=== PATIENT | male | born 1975 | race Caucasian/White ===

== ENCOUNTER 2019-01-03 10:22 | Inpatient (IN) | payer MEDICARE, MEDICAID ==
[2019-01-03 10:48] LABS: CHLORIDE,CL 103 mEq/L (98-106); SODIUM,NA 139 mEq/L (136-145)
[2019-01-03] MEDS ORDERED: Ondansetron 4 MG/2 ML SDV IV PRN (12:40)
[2019-01-03] MEDS ORDERED: Docusate Sodium 100 MG Cap PO PRN (12:40)
[2019-01-03] MEDS ORDERED: Ibuprofen 200 MG Tab PO PRN (12:40)
[2019-01-03] MEDS ORDERED: Acetaminophen 325 MG Tab PO PRN (12:40)
[2019-01-03] MEDS: cefTRIAXone 1 GM Vial IVPUSH SCH (13:29)
[2019-01-03] MEDS: Sodium Chloride 0.9% 1,000 ML IV SCH (15:04)
[2019-01-04] MEDS: Sodium Chloride 0.9% 1,000 ML IV SCH ×2 (00:06→20:30)
[2019-01-04 07:54] LABS: CHLORIDE,CL 108 mEq/L (98-106); SODIUM,NA 142 mEq/L (136-145)
--- NOTE | 2019-01-04 09:16 | PCM.PN ---
- General Info Date of Service: 01/04/19 Admission Dx/Problem (Free Text): UTI Weakness Functional Status: Reports: Pain Controlled, Tolerating Diet, Ambulating, Urinating - Review of Systems General: Reports: Fever, Weakness HEENT: Reports: No Symptoms Pulmonary: Denies: Shortness of Breath Cardiovascular: Denies: Chest Pain, Edema, Lightheadedness Gastrointestinal: Denies: Abdominal Pain, Diarrhea, Hematochezia (no further vomiting since admit), Nausea, Vomiting Genitourinary: Denies: Incontinence, Hematuria Musculoskeletal: Reports: No Symptoms Skin: Reports: No Symptoms Neurological: Reports: Pre-Existing Deficit (history of down's syndrome) - Patient Data Vitals - Most Recent: Last Vital Signs Temp 98.5 F 01/04/19 07:25 Pulse 74 01/04/19 07:25 Resp 18 01/04/19 07:25 BP 118/73 01/04/19 07:25 Pulse Ox 94 L 01/04/19 07:25 Weight - Most Recent: 164 lb 4.8 oz I&O - Last 24 Hours: Intake & Output 01/03/19 01/04/19 01/04/19 22:59 06:59 14:59 Intake Total 903 Balance 903 Lab Results Last 24 Hours: Laboratory Results - last 24 hr 01/03/19 01/03/19 01/03/19 Range/Units 10:28 10:28 10:28 WBC 20.2 H* (5.0-10.0) 10^3/uL RBC 5.30 (4.50-6.00) 10^6/uL Hgb 17.1 (14.0-18.0) g/dL Hct 48.8 (40.0-54.0) % MCV 92.1 (82.0-94.0) fL MCH 32.3 H (27.0-32.0) pg MCHC 35.0 (33.0-38.0) g/dL RDW Coeff of Angelo 14.6 (11.0-15.0) % Plt Count 196 (150-400) 10^3/uL Neut % (Auto) [place] Lymph % (Auto) [place] Sorter Brown % (Auto) [place] Eos % (Auto) [place] Baso % (Auto) [place] Neut # (Auto) [place] Lymph # (Auto) [place] S[place] Brown # (Auto) [place] Eos # (Auto) [place] Baso # (Auto) [place] Add Manual Diff Yes Neutrophils % (Manual) 75 (35-85) % Band Neutrophils % 11 H (0-5) % Lymphocytes % (Manual) 11 L (21-55) % Monocytes % (Manual) 3 (2-12) % Sodium 139 (136-145) mEq/L Potassium 4.7 D (3.5-5.0) mEq/L Chloride 103 (98-106) mEq/L Carbon Dioxide 28 (21-32) mmol/L BUN 21 H (7-18) mg/dL Creatinine 1.1 (0.7-1.3) mg/dL Est Cr Clr Drug Dosing TNP Estimated GFR (MDRD) > 60 (>=60) mL/min Glucose 122 H D (75-99) mg/dL Calcium 9.0 (8.4-10.1) mg/dL Total Bilirubin 0.5 (0.0-1.0) mg/dL AST 22 (15-37) U/L ALT 32 (12-78) U/L Alkaline Phosphatase 76 (46-116) U/L C-Reactive Protein 3.5 H (0.2-0.8) mg/dL Total Protein 7.5 (6.4-8.2) g/dL Albumin 3.5 (3.4-5.0) g/dL Amylase 35 (25-115) U/L Urine Color Yellow (YELLOW) Urine Appearance Slightly cloudy (CLEAR) Urine pH 7.0 (4.5-8.0) Ur Specific [place] 1.020 (1.003-1.020) Urine Protein Trace H (NEGATIVE) mg/dL Urine Glucose (UA) Negative (NEGATIVE) mg/dL Urine Ketones Negative (NEGATIVE) mg/dL Urine Occult Blood Trace-intact H (NEGATIVE) Urine Nitrite Negative (NEGATIVE) Urine Bilirubin Negative (NEGATIVE) Urine Urobilinogen 0.2 (0.2-1.0) EU/dL Ur Leukocyte Esterase Moderate H (NEGATIVE) Urine RBC 5-10 H (0-5) /HPF Urine WBC 20-30 H (0-5) /HPF Ur Squamous Epith Cells Occasional H (NOT SEEN) /HPF Urine Bacteria Occasional H (NOT SEEN) /HPF 01/04/19 01/04/19 Range/Units 06:55 07:00 WBC 10.4 H (5.0-10.0) 10^3/uL RBC 4.70 (4.50-6.00) 10^6/uL Hgb 15.1 (14.0-18.0) g/dL Hct 45.2 (40.0-54.0) % MCV 96.2 H (82.0-94.0) fL MCH 32.1 H (27.0-32.0) pg MCHC 33.4 (33.0-38.0) g/dL RDW Coeff of Angelo 15.1 H (11.0-15.0) % Plt Count 177 (150-400) 10^3/uL Neut % (Auto) 75.2 Lymph % (Auto) 16.1 Brown % (Auto) 6.8 Eos % (Auto) 1.5 Baso % (Auto) 0.4 Neut # (Auto) 7.82 H Lymph # (Auto) 1.68 Brown # (Auto) 0.71 Eos # (Auto) 0.16 Baso # (Auto) 0.04 Add Manual Diff Neutrophils % (Manual) (35-85) % Band Neutrophils % (0-5) % Lymphocytes % (Manual) (21-55) % Monocytes % (Manual) (2-12) % Sodium 142 (136-145) mEq/L Potassium 4.0 (3.5-5.0) mEq/L Chloride 108 H (98-106) mEq/L Carbon Dioxide 31 (21-32) mmol/L BUN 20 H (7-18) mg/dL Creatinine 1.0 (0.7-1.3) mg/dL Est Cr Clr Drug Dosing TNP Estimated GFR (MDRD) > 60 (>=60) mL/min Glucose 134 H (75-99) mg/dL Calcium 8.2 L (8.4-10.1) mg/dL Total Bilirubin (0.0-1.0) mg/dL AST (15-37) U/L ALT (12-78) U/L Alkaline Phosphatase (46-116) U/L C-Reactive Protein 12.3 H (0.2-0.8) mg/dL Total Protein (6.4-8.2) g/dL Albumin (3.4-5.0) g/dL Amylase (25-115) U/L Urine Color (YELLOW) Urine Appearance (CLEAR) Urine pH (4.5-8.0) Ur Specific [place] (1.003-1.020) Urine Protein (NEGATIVE) mg/dL Urine Glucose (UA) (NEGATIVE) mg/dL Urine Ketones (NEGATIVE) mg/dL Urine Occult Blood (NEGATIVE) Urine Nitrite (NEGATIVE) Urine Bilirubin (NEGATIVE) Urine Urobilinogen (0.2-1.0) EU/dL Ur Leukocyte Esterase (NEGATIVE) Urine RBC (0-5) /HPF Urine WBC (0-5) /HPF Ur Squamous Epith Cells (NOT SEEN) /HPF Urine Bacteria (NOT SEEN) /HPF Med Orders - Current: Current Medications Acetaminophen (Tylenol) 650 mg PO Q4H PRN PRN Reason: Pain (Mild 1-3)/fever Last Admin: 01/03/19 15:03 Dose: 650 mg Ceftriaxone Sodium (Rocephin) 1 gm IVPUSH DAILY@1200 [facility] Last Admin: 01/03/19 13:29 Dose: 1 gm Docusate Sodium (Colace) 100 mg PO BID PRN PRN Reason: Constipation Sodium Chloride (Normal Saline) 1,000 mls @ 100 mls/hr IV ASDIRECTED [facility] Last Admin: 01/04/19 00:06 Dose: 100 mls/hr Ibuprofen (Motrin) 400 mg PO Q6H PRN PRN Reason: Pain (mild 1-3) Ondansetron HCl (Zofran) 4 mg IV Q4H PRN PRN Reason: Nausea/Vomiting - Exam General: Alert, Oriented (person) HEENT: Mucous Membr. Moist/[place] Neck: Supple Lungs: Clear to Auscultation, Normal Respiratory Effort Cardiovascular: Regular Rate, Regular Rhythm GI/Abdominal Exam: Normal Bowel Sounds, Soft, Non-Tender Extremities: Normal Inspection, No Pedal Edema Skin: Warm, Dry Neurological: No New Focal Deficit - Problem List & Annotations (1) UTI (urinary tract infection) SNOMED Code(s): 70105355 Code(s): N39.0 - URINARY TRACT INFECTION, SITE NOT SPECIFIED Status: Acute Priority: High Current Visit: Yes Qualifiers: Urinary tract infection type: acute cystitis Hematuria presence: without hematuria Qualified Code(s): N30.00 - Acute cystitis without hematuria (2) Hematemesis SNOMED Code(s): 7015811 Code(s): K92.0 - HEMATEMESIS Status: Acute Priority: High Current Visit : Yes Qualifiers: Nausea presence: with nausea Qualified Code(s): K92.0 - Hematemesis (3) Down's syndrome SNOMED Code(s): 80065723 Code(s): Q90.9 - DOWN SYNDROME, UNSPECIFIED Status: Chronic Priority: Medium Current Visit: Yes - Problem List Review Problem List Initiated/Reviewed/Updated: Yes - My Orders Last 24 Hours: My Active Orders 01/05/19 05:11 BASIC METABOLIC PANEL,BMP [CHEM] AM C-REACTIVE PROTEIN [CHEM] AM CBC WITH AUTO DIFF [HEME] AM - Assessment Assessment:: UTI Hematemesis down's syndrome - Plan Plan:: Patient doing well this am. Denies any abdominal pain. No vomiting, hematemesis or any stools since admit. Temp this am 99.0. Eating breakfast without concern, no nausea. Denies burning with urination. Exam negative. WBC stabilized today at 10.4, down from 20.2. CRP up to 12.3 from 3.5. Awaiting urine culture. Will continue with IV antibiotics, probable discharge home tomorrow.
[2019-01-04] MEDS: cefTRIAXone 1 GM Vial IVPUSH SCH (12:33)
[2019-01-05] MEDS: Sodium Chloride 0.9% 1,000 ML IV SCH (06:31)
[2019-01-05 07:55] LABS: CHLORIDE,CL 106 mEq/L (98-106); SODIUM,NA 141 mEq/L (136-145)
--- NOTE | 2019-01-05 20:36 | PCM.DCSUM1 ---
Discharge Summary - Hospital Course Free Text/Narrative:: Patient presented to clinic to see Nico Chan for concerns with hematemesis. Staff from [address] [place] [address] reports that he was running fever. Had been ill over night , noted bloody emesis in stool this am. Patient himself does not complain. He typically only has intermittent staff that checks on his at his apartment. Lab work up in the clinic did show UTI. WBC 20.2. CRP 3.5. Admitted and started on IV Rocephin. Culture of urine ordered. Diagnosis: Stroke: No Modified Mcintosh Scale: No Symptoms at All Modified Mcintosh Scale Score: 0 - Discharge Data Discharge Date: 01/05/19 Discharge Disposition: Home, Self-Care 01 Condition: Good - Discharge Diagnosis/Problem(s) (1) UTI (urinary tract infection) SNOMED Code(s): 69396589 ICD Code: N39.0 - URINARY TRACT INFECTION, SITE NOT SPECIFIED Status: Acute Priority: High Qualifiers: Urinary tract infection type: acute cystitis Hematuria presence: without hematuria Qualified Code(s): N30.00 - Acute cystitis without hematuria (2) Hematemesis SNOMED Code(s): 8286312 ICD Code: K92.0 - HEMATEMESIS Status: Acute Priority: High Qualifiers: Nausea presence: with nausea Qualified Code(s): K92.0 - Hematemesis (3) Down's syndrome SNOMED Code(s): 08590151 ICD Code: Q90.9 - DOWN SYNDROME, UNSPECIFIED Status: Chronic Priority: Medium - Patient Summary/Data Complications: none Hospital Course: Patient doing well. Up and ambulating easily. Appetite good. Afebrile. Denies any pain. Exam negative. Urine culture positive for enterococcus faecium and e coli. Discharge home on Ceftin. Recheck in 2 weeks with Nico Chan. - Patient Instructions Diet: Usual Diet as Tolerated Activity: As Tolerated - Discharge Plan *PRESCRIPTION DRUG MONITORING PROGRAM REVIEWED*: No *COPY OF PRESCRIPTION DRUG MONITORING REPORT IN PATIENT [facility]: No Prescriptions/Med Rec: Cefuroxime Axetil [Ceftin] 250 mg PO BID #20 tablet Home Medications: Home Meds Betamethasone/Propylene Glyc [Betamethasone DP Aug 0.05%] 30 ml TP TID PRN 01/03 [History] Chlorhexidine Gluconate [Peridex 0.12% Rinse] 15 ml PO BID 01/03/19 [History] Clotrimazole [Clotrimazole 1%] 1 gm TOP DAILY 01/03/19 [History] Levothyroxine [Synthroid] 100 mcg PO ACBREAKFAST 01/03/19 [History] Loratadine [Claritin] 10 mg PO DAILY 01/03/19 [History] Multivitamin [Multi-Vitamin Daily] 1 tab PO DAILY 01/03/19 [History] Ranitidine [Zantac] 150 mg PO BID 01/03/19 [History] Cefuroxime Axetil [Ceftin] 250 mg PO BID #20 tablet 01/05/19 [Rx] Referrals: Sharan Chan PA-C [Primary Care Provider] - (follow up in 2 weeks with Nico Chan) - Discharge Summary/Plan Comment DC Time >30 min.: No - General Info Date of Service: 01/05/19 Admission Dx/Problem (Free Text: UTI Weakness Functional Status: Reports: Pain Controlled, Tolerating Diet, Ambulating - Review of Systems General: Denies: Fever, Weakness HEENT: Reports: No Symptoms Pulmonary: Denies: Shortness of Breath, Cough, Wheezing Cardiovascular: Denies: Chest Pain, Edema, Lightheadedness Gastrointestinal: Denies: Abdominal Pain, Diarrhea, Nausea, Vomiting Genitourinary: Reports: No Symptoms Musculoskeletal: Reports: No Symptoms Skin: Reports: No Symptoms Neurological: Reports: Pre-Existing Deficit (history of down's syndrome) - Patient Data Vitals - Most Recent: Last Vital Signs Temp 97.8 F 01/05/19 08:00 Pulse 73 01/05/19 08:00 Resp 16 01/05/19 08:00 BP 127/76 01/05/19 08:00 Pulse Ox 95 01/05/19 08:00 Weight - Most Recent: 164 lb 4.8 oz I&O - Last 24 hours: Intake & Output 01/05/19 01/05/19 01/05/19 06:59 14:59 22:59 Intake Total 1000 Balance 1000 Lab Results - Last 24 hrs: Laboratory Results - last 24 hr 01/05/19 01/05/19 Range/Units 07:00 07:00 WBC 8.1 (5.0-10.0) 10^3/uL RBC 4.66 (4.50-6.00) 10^6/uL Hgb 15.1 (14.0-18.0) g/dL Hct 45.0 (40.0-54.0) % MCV 96.6 H (82.0-94.0) fL MCH 32.4 H (27.0-32.0) pg MCHC 33.6 (33.0-38.0) g/dL RDW Coeff of Angelo 15.0 (11.0-15.0) % Plt Count 175 (150-400) 10^3/uL Neut % (Auto) 67.1 (35-85) % Lymph % (Auto) 21.0 (10-55) % [place] % (Auto) 8.9 (0-16) % Eos % (Auto) 2.8 (0-5) % Baso % (Auto) 0.2 (0-3) % Neut # (Auto) 5.42 (1.80-7.00) 10^3/uL Lymph # (Auto) 1.70 (1.00-4.80) 10^3/uL [place]le # (Auto) 0.72 (0.00-0.80) 10^3/uL Eos # (Auto) 0.23 (0.00-0.45) 10^3/uL Baso # (Auto) 0.02 10^3/uL Sodium 141 (136-145) mEq/L Potassium 4.6 (3.5-5.0) mEq/L Chloride 106 (98-106) mEq/L Carbon Dioxide 31 (21-32) mmol/L BUN 13 (7-18) mg/dL Creatinine 1.1 (0.7-1.3) mg/dL Est Cr Clr Drug Dosing TNP Estimated GFR (MDRD) > 60 (>=60) mL/min Glucose 108 H (75-99) mg/dL Calcium 8.5 (8.4-10.1) mg/dL C-Reactive Protein 6.4 H (0.2-0.8) mg/dL DINH Results - Last 24 hrs: Microbiology 01/03/19 12:55 Aerobic Blood Culture - Preliminary Blood - Venous NO GROWTH AFTER 2 DAYS Anaerobic Blood Culture - Preliminary NO GROWTH AFTER 2 DAYS 01/03/19 13:02 Aerobic Blood Culture - Preliminary Blood - Venous - Lab Draw NO GROWTH AFTER 2 DAYS Anaerobic Blood Culture - Preliminary NO GROWTH AFTER 2 DAYS 01/03/19 10:28 Urine Culture - Final Urine, Voided Enterococcus Faecium Escherichia Coli Med Orders - Current: Current Medications Discontinued Medications Acetaminophen (Tylenol) 650 mg PO Q4H PRN PRN Reason: Pain (Mild 1-3)/fever Last Admin: 01/03/19 15:03 Dose: 650 mg Ceftriaxone Sodium (Rocephin) 1 gm IVPUSH DAILY@1200 [facility] Last Admin: 01/04/19 12:33 Dose: 1 gm Docusate Sodium (Colace) 100 mg PO BID PRN PRN Reason: Constipation Sodium Chloride (Normal Saline) 1,000 mls @ 100 mls/hr IV ASDIRECTED [facility] Last Admin: 01/05/19 06:31 Dose: 100 mls/hr Ibuprofen (Motrin) 400 mg PO Q6H PRN PRN Reason: Pain (mild 1-3) Ondansetron HCl (Zofran) 4 mg IV Q4H PRN PRN Reason: Nausea/Vomiting - Exam General: Reports: Alert, Cooperative HEENT: Reports: Mucous Membr. Moist/[place] Neck: Reports: Supple Lungs: Reports: Clear to Auscultation, Normal Respiratory Effort Cardiovascular: Reports: Regular Rate, Regular Rhythm GI/Abdominal Exam: Normal Bowel Sounds, Soft, Non-Tender Extremities: Normal Inspection, No Pedal Edema Skin: Reports: Warm, Dry Neurological: Reports: No New Focal Deficit
== END 2019-01-05 13:15 | disposition home or self-care (01) | DRG 690 ==
LOC: CC.FCMC 10:22 → CC.MS 10:22 → UNDOADMIN 11:15 → CC.MS 11:15
PROVIDERS: ADMIT Physician Assistant Medical; ATTEND Family Medicine
DX: N39.0 Urinary tract infection, site not specified (principal); K92.0 Hematemesis; Q90.9 Down syndrome, unspecified; R53.1 Weakness; H26.9 Unspecified cataract; K21.9 Gastro-esophageal reflux disease without esophagitis; K44.9 Diaphragmatic hernia without obstruction or gangrene; E03.9 Hypothyroidism, unspecified; Z88.1 Allergy status to other antibiotic agents
CPT/HCPCS: 36415; 76770; 80048; 80053; 81001; 82150; 85025; 86140; 87040; 87086; 87088; 87186; A9270-GY; J0696; J7030

== ENCOUNTER 2024-06-04 15:46 | Observation (INO) | payer MEDICARE, MEDICAID ==
[2024-06-04 16:20] LABS: BASOPHILS ABSOLUTE AUTO 0.06 10^3/uL (0.00-0.50); BASOPHILS PERCENT AUTO 0.8 % (0-1); EOSINOPHILS ABSOLUTE AUTO 0.04 10^3/uL (0.00-1.50); EOSINOPHILS PERCENT AUTO 0.5 % (0-6); HEMATOCRIT 48.4 % (42.0-52.0); HEMOGLOBIN 16.3 g/dL (14.0-18.0); IMMATURE GRAN ABSOLUTE AUTO 0.02 10^3/uL (0.00-0.49); IMMATURE GRAN PERCENT AUTO 0.3 % (0.0-4.9); LYMPHOCYTES ABSOLUTE AUTO 1.77 10^3/uL (0.60-5.00); LYMPHOCYTES PERCENT AUTO 23.9 % (24-44); MEAN CORPUSCULAR HEMOGLOBIN 31.7 pg (27.0-32.0); MEAN CORPUSCULAR HGB CONC 33.7 g/dL (32.0-36.0); MEAN CORPUSCULAR VOLUME 94.2 fL (83.0-97.0); MONOCYTES ABSOLUTE AUTO 0.55 10^3/uL (0.00-1.50); MONOCYTES PERCENT AUTO 7.4 % (0-10); NEUTROPHILS ABSOLUTE AUTO 4.97 x10^3/uL (1.80-8.00); NEUTROPHILS PERCENT AUTO 67.1 % (41-71); PLATELET COUNT,PLT 172 10^3/uL (150-400); RED BLOOD CELL COUNT 5.14 x10^6/uL (4.50-6.00); WHITE BLOOD CELL COUNT,WBC 7.4 10^3/uL (4.0-11.0)
[2024-06-04 16:30] LABS: APPEARANCE,URINE CLEAR (CLEAR); BILIRUBIN,URINE NEGATIVE (NEGATIVE); COLOR,URINE YELLOW (YELLOW); GLUCOSE,URINE NEGATIVE (NEGATIVE); KETONES,URINE NEGATIVE (NEGATIVE); LEUKOCYTE ESTERASE,URINE TRACE (NEGATIVE); NITRITE,URINE NEGATIVE (NEGATIVE); OCCULT BLOOD,URINE TRACE-INTACT (NEGATIVE); PROTEIN,URINE NEGATIVE (NEGATIVE); UROBILINOGEN,URINE 0.2 EU/dL (0.2-1.0)
[2024-06-04 16:35] LABS: WBC,URINE 0-5 /HPF (0-5)
[2024-06-04 16:36] LABS: INR 1.05 (0.92-1.18); PTT,PARTIAL THROMBOPLSTIN TIME 25.6 SEC (20.0-30.0)
[2024-06-04 16:39] LABS: ALANINE AMINOTRANSFERASE,ALT 28 U/L (12-78); ALBUMIN 3.3 g/dL (3.4-5.0); ALKALINE PHOSPHATASE 76 U/L (46-116); ASPARTATE AMNIOTRANSFERASE,AST 23 U/L (15-37); BILIRUBIN TOTAL 0.4 mg/dL (0.0-1.0); BLOOD UREA NITROGEN,BUN 14 mg/dL (7-18); CALCIUM 9.2 mg/dL (8.4-10.1); CARBON DIOXIDE,CO2 32 mmol/L (21-32); CHLORIDE,CL 99 mEq/L (98-106); ESTIMATED GFR 93 mL/min (>=60); GLUCOSE RANDOM 129 mg/dL (75-99); LIPASE 29 U/L (16-77); MAGNESIUM 1.5 mg/dL (1.8-2.4); PROTEIN TOTAL,TP 7.4 g/dL (6.4-8.2); SODIUM,NA 137 mEq/L (136-145)
[2024-06-04] MEDS ORDERED: Ondansetron 4 MG Tab.DIS PO PRN (17:30)
[2024-06-04] MEDS ORDERED: Acetaminophen 325 MG Tab PO PRN (17:30)
[2024-06-04] MEDS ORDERED: Sodium Chloride 0.9% 10 ML Syringe FLUSH PRN (17:30)
[2024-06-04] MEDS ORDERED: Ondansetron 4 MG/2 ML SDV IV PRN (17:30)
[2024-06-04] MEDS: Magnesium Sulfate/Water Premix 2 GM in Premix Bag 1 BAG IV ONE (17:42)
[2024-06-04] MEDS: Magnesium Oxide 400 MG Tab PO SCH (19:16)
[2024-06-04] MEDS: Amoxicillin 500 MG Cap PO SCH (19:16)
[2024-06-05] MEDS ORDERED: Levothyroxine 100 MCG Tab PO SCH (07:00)
[2024-06-05] MEDS ORDERED: Multivitamin Tab PO SCH (08:00)
[2024-06-05] MEDS ORDERED: Tamsulosin 0.4 MG Cap.ER PO SCH (08:00)
[2024-06-05] MEDS ORDERED: Famotidine 20 MG Tab PO SCH (08:00)
[2024-06-05] MEDS ORDERED: Loratadine 10 MG Tab PO SCH (08:00)
[2024-06-05] MEDS ORDERED: Allopurinol 100 MG Tab PO SCH (08:00)
== END 2024-06-04 21:30 ==
LOC: CC.ED 15:46 → CC.MS 16:42 → UNDOADMOB 16:45 → CC.MS 16:45 → UNDODISOB 21:30
PROVIDERS: ADMIT Physician Assistant Medical; ATTEND Physician Assistant Medical
DX: E83.42 Hypomagnesemia (principal); R55 Syncope and collapse; I49.5 Sick sinus syndrome; E03.9 Hypothyroidism, unspecified; Z79.899 Other long term (current) drug therapy; Z79.2 Long term (current) use of antibiotics; Z88.8 Allergy status to other drugs, medicaments and biological substances; Z88.2 Allergy status to sulfonamides
CPT/HCPCS: 36415; 70450; 71045; 80053; 81001; 83690; 83735; 84484; 85025; 85610; 85730; 93005; 93010; 96365; 96366; 99285; A9270-GY; G0378; J3475

== ENCOUNTER 2024-09-11 12:37 | Observation (INO) | payer MEDICARE, MEDICAID ==
[2024-09-11] MEDS ORDERED: Sodium Chloride 0.9% 10 ML Syringe FLUSH PRN (13:14)
[2024-09-11] MEDS ORDERED: Ondansetron 4 MG/2 ML SDV IV PRN (13:14)
[2024-09-11] MEDS ORDERED: Ondansetron 4 MG Tab.DIS PO PRN (13:14)
[2024-09-11 14:13] LABS: CORONAVIRUS COVID-19 NAA NEGATIVE (NEGATIVE); INFLUENZA A NAA POSITIVE (NEGATIVE); INFLUENZA B NAA NEGATIVE (NEGATIVE)
[2024-09-11] MEDS: methylPREDNISolone Sodium Succinate 40 MG/1 ML SDV IVPUSH ONE (14:20)
[2024-09-11] MEDS: cefTRIAXone 1 GM Vial IVPUSH SCH (14:20)
[2024-09-11] MEDS: Oseltamivir 75 MG Cap PO ONE (15:01)
[2024-09-11] MEDS: Albuterol/Ipratropium 3.0-0.5 MG/3 ML Neb Soln NEB SCH (15:47)
[2024-09-11] MEDS: Oseltamivir 75 MG Cap PO SCH (19:48)
[2024-09-11] MEDS: Lactobacillus Rhamnosus GG (Probiotic) Cap PO SCH (19:48)
[2024-09-11] MEDS: methylPREDNISolone Sodium Succinate 40 MG/1 ML SDV IVPUSH SCH (20:01)
[2024-09-12] MEDS: Levothyroxine 100 MCG Tab PO SCH (06:39)
[2024-09-12] MEDS: Loratadine 10 MG Tab PO SCH (07:26)
[2024-09-12] MEDS: Tamsulosin 0.4 MG Cap.ER PO SCH (07:27)
[2024-09-12] MEDS: Famotidine 20 MG Tab PO SCH (07:27)
[2024-09-12] MEDS: Allopurinol 100 MG Tab PO SCH (07:29)
[2024-09-12] MEDS: Multivitamin Tab PO SCH (07:29)
[2024-09-12 07:35] LABS: BILIRUBIN TOTAL 0.5 mg/dL (0.0-1.0); C-REACTIVE PROTEIN 10.73 mg/dL (<=0.50); CALCIUM 9.5 mg/dL (8.4-10.1); EST CRCL DRUG DOSING (CG) 66.83 mL/min; PROTEIN TOTAL,TP 7.3 g/dL (6.4-8.2)
[2024-09-12 07:38] LABS: BASOPHILS ABSOLUTE AUTO 0.01 10^3/uL (0.00-0.50); BASOPHILS PERCENT AUTO 0.1 % (0-1); HEMATOCRIT 46.5 % (42.0-52.0); HEMOGLOBIN 15.8 g/dL (14.0-18.0); IMMATURE GRAN ABSOLUTE AUTO 0.02 10^3/uL (0.00-0.49); IMMATURE GRAN PERCENT AUTO 0.1 % (0.0-4.9); LYMPHOCYTES ABSOLUTE AUTO 0.98 10^3/uL (0.60-5.00); LYMPHOCYTES PERCENT AUTO 7.2 % (24-44); MEAN CORPUSCULAR HEMOGLOBIN 31.3 pg (27.0-32.0); MEAN CORPUSCULAR VOLUME 92.1 fL (83.0-97.0); MONOCYTES ABSOLUTE AUTO 0.28 10^3/uL (0.00-1.50); NEUTROPHILS PERCENT AUTO 90.6 % (41-71); PLATELET COUNT,PLT 119 10^3/uL (150-400); RED BLOOD CELL COUNT 5.05 x10^6/uL (4.50-6.00); WHITE BLOOD CELL COUNT,WBC 13.7 10^3/uL (4.0-11.0)
[2024-09-12] MEDS ORDERED: Non-Formulary Medication 1 Each (Multivitamin [Multi-Vitamin Daily] 1 EACH Tablet) PO SCH (08:00)
== END 2024-09-12 13:30 | disposition home or self-care (01) ==
LOC: UNDOADMOB 12:37 → CC.MS 12:37 → INTOOBSV 12:37 → CC.MS 13:02
PROVIDERS: ATTEND Physician Assistant Medical
DX: J18.9 Pneumonia, unspecified organism (principal); E03.9 Hypothyroidism, unspecified; Z88.8 Allergy status to other drugs, medicaments and biological substances; Z88.2 Allergy status to sulfonamides; Z88.1 Allergy status to other antibiotic agents; Z20.822 Contact with and (suspected) exposure to COVID-19; Z79.899 Other long term (current) drug therapy; Z79.890 Hormone replacement therapy
CPT/HCPCS: 0240U; 36415; 71046; 71101-RT; 80048; 80053; 85025; 86140; 87428-QW; 94640; 96374; 96376; A9270-GY; G0378; J0696; J2919; J7620-GY

== ENCOUNTER 2024-10-01 19:50 | Emergency (ER) | payer MEDICARE, MEDICAID ==
[2024-10-01 20:18] LABS: BASOPHILS ABSOLUTE AUTO 0.02 10^3/uL (0.00-0.50); BASOPHILS PERCENT AUTO 0.3 % (0-1); EOSINOPHILS ABSOLUTE AUTO 0.02 10^3/uL (0.00-1.50); EOSINOPHILS PERCENT AUTO 0.3 % (0-6); HEMOGLOBIN 14.7 g/dL (14.0-18.0); IMMATURE GRAN ABSOLUTE AUTO 0.02 10^3/uL (0.00-0.49); IMMATURE GRAN PERCENT AUTO 0.3 % (0.0-4.9); LYMPHOCYTES ABSOLUTE AUTO 0.95 10^3/uL (0.60-5.00); LYMPHOCYTES PERCENT AUTO 15.3 % (24-44); MEAN CORPUSCULAR HEMOGLOBIN 30.9 pg (27.0-32.0); MEAN CORPUSCULAR HGB CONC 33.4 g/dL (32.0-36.0); MEAN CORPUSCULAR VOLUME 92.6 fL (83.0-97.0); MONOCYTES ABSOLUTE AUTO 0.91 10^3/uL (0.00-1.50); MONOCYTES PERCENT AUTO 14.7 % (0-10); NEUTROPHILS ABSOLUTE AUTO 4.29 x10^3/uL (1.80-8.00); NEUTROPHILS PERCENT AUTO 69.1 % (41-71); PLATELET COUNT,PLT 239 10^3/uL (150-400); RED BLOOD CELL COUNT 4.75 x10^6/uL (4.50-6.00); WHITE BLOOD CELL COUNT,WBC 6.2 10^3/uL (4.0-11.0)
[2024-10-01 20:30] LABS: ALBUMIN 2.6 g/dL (3.4-5.0); BILIRUBIN TOTAL 0.6 mg/dL (0.0-1.0); CALCIUM 9.3 mg/dL (8.4-10.1); EST CRCL DRUG DOSING (CG) 63.89 mL/min; POTASSIUM,K 3.6 mEq/L (3.5-5.0); PROTEIN TOTAL,TP 7.1 g/dL (6.4-8.2)
[2024-10-01] MEDS: Apixaban 5 MG Tab PO ONE (21:40)
[2024-10-01] MEDS: Clotrimazole 1% Crm 30 GM Tube TOP STA (21:52)
== END 2024-10-01 22:00 | disposition home or self-care (01) ==
LOC: CC.ED 19:50
DX: B35.6 Tinea cruris (principal); M79.604 Pain in right leg; R79.1 Abnormal coagulation profile; K21.9 Gastro-esophageal reflux disease without esophagitis; E03.9 Hypothyroidism, unspecified; Z79.899 Other long term (current) drug therapy; Z79.01 Long term (current) use of anticoagulants; Z88.1 Allergy status to other antibiotic agents; Z88.2 Allergy status to sulfonamides
CPT/HCPCS: 36415; 80053; 85025; 85379; 99283; 99284; A9270-GY